=== PATIENT | female | born 1955 | race Hispanic/Latino ===

== ENCOUNTER 2019-02-01 15:59 | Outpatient (CLI) | payer BC ==
--- NOTE | 2019-02-02 12:02 | Mammography Report ---
DIGITAL SCREENING MAMMOGRAM WITH CAD, 02/01/2019 INDICATION: Routine screening mammography. TECHNIQUE: Digital bilateral 2D mammography was obtained in the craniocaudal and mediolateral obliq ue projections without and with implant displacement. This examination was interpreted with the benef it of Computer-Aided Detection analysis. COMPARISON: 02/05/2011 FINDINGS: Breast Density: The breasts are heterogeneously dense, which may obscure small masses. There is no evidence of dominant mass, suspicious calcifications or architectural distortion in eithe r breast. Bilateral subglandular implants with heavy capsular calcification are unchanged compared to the previous exam. The right implant is deformed and I suspect there is herniation of the implant t hrough the capsule in the lower inner portion of the breast. This has not changed since the last mamm ogram.The technologist noted that the implants demonstrated minimal mobility during the exam. IMPRESSION: 1. No mammographic evidence of malignancy. 2. Bilateral benign capsular implant capsule calcification which explains the lack of mobility of the implants. 3. Stable deformity of the right breast implant with suggestion of capsular herniation in the lower i nner right breast. Follow up recommendation: Routine yearly BI-RADS Category 2: Benign. A "normal" or negative report should not discourage follow up or biopsy of a clinically significant f inding. A written summary of these findings will be mailed to the patient. The patient will be entered into a mammography reporting system which will generate a reminder letter for the patient's next appointmen t at the appropriate interval. The [employer] recommends yearly mammograms starting at age 40 and continuing as l morteza as a woman is in good health. Breast MRI is recommended for women with an approximate 20-25% or greater lifetime risk of breast cancer, including women with a strong family history of breast or ova poonam cancer or who have been treated for Hodgkin's disease. Signer Name: Angelito Ty MD Signed: 02/02/2019 11:57 AM Workstation Name: [id number]
== END 2019-02-01 16:00 | disposition home or self-care (01) ==
LOC: SPVWC 15:59
PROVIDERS: ATTEND Obstetrics & Gynecology
DX: Z12.31 Encounter for screening mammogram for malignant neoplasm of breast (principal)
CPT/HCPCS: 77067